=== PATIENT | male | born 1995 | race African-American/Black ===

== ENCOUNTER 2016-11-22 10:49 | Emergency (ER) | payer SELFPAY ==
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
[2016-11-22] MEDS ORDERED: KETOROLAC TROMETHAMINE 60 MG/2 ML SDV IM ONE (12:08)
[2016-11-22 12:20] VITALS: BP 144/66
== END 2016-11-22 12:22 | disposition home or self-care (01) ==
LOC: ER 10:49
DX: S33.2XXA Dislocation of sacroiliac and sacrococcygeal joint, initial encounter (principal); R03.0 Elevated blood-pressure reading, without diagnosis of hypertension; W18.30XA Fall on same level, unspecified, initial encounter; Y93.67 Activity, basketball; F17.210 Nicotine dependence, cigarettes, uncomplicated
CPT/HCPCS: 99283; 96372; 72220; J1885

== ENCOUNTER 2018-06-02 12:03 | Emergency (ER) | payer SELFPAY ==
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
[2018-06-02 13:43] VITALS: BP 126/73
== END 2018-06-02 13:44 | disposition home or self-care (01) ==
LOC: ER 12:03
DX: R07.81 Pleurodynia (principal); F17.210 Nicotine dependence, cigarettes, uncomplicated
CPT/HCPCS: 99283

== ENCOUNTER 2018-08-25 03:27 | Emergency (ER) | payer SELFPAY ==
[2018-08-25] MEDS ORDERED: KETOROLAC TROMETHAMINE 60 MG/2 ML SDV IM ONE (05:49)
--- NOTE | 2018-08-25 05:49 | ER Document Report ---
HPI - HPI Patient complains to provider of: Right shoulder pain, right arm pain Time Seen by Provider: 08/25/18 05:36 Pain Level: 3 Context: Patient is a 23-year-old male that comes to the emergency department for chief complaint of pain in the right shoulder area at the pectoralis muscle extending into the arm and occasionally radiating down the arm. He points to the area of pain. He states it has been hurting him over the past couple of days, worse today. He does shingling work, he is right-handed. He denies impact or trauma. He denies numbness or weakness. He denies fever or chills, nausea or vomiting, denies ever using IV drugs, he denies pain in his chest, shortness of breath. He denies any daily medications or known medical history. He smokes, he also smokes weed. He denies recreational drugs otherwise. Past Medical History - General Information source: Patient - Social History Smoking Status: Current Every Day Smoker Smoking Education Provided: Yes - <3 min Drug Abuse: Marijuana Lives with: Family Family History: Reviewed & Not Pertinent - Medical History Medical History: Negative Renal/ Medical History: Denies: Hx Peritoneal Dialysis Surgical Hx: Negative - Immunizations Immunizations up to date: Yes Hx Diphtheria, Pertussis, Tetanus Vaccination: Yes Vertical Provider Document - CONSTITUTIONAL General Appearance: WD/WN, No Apparent Distress - INFECTION CONTROL TRAVEL OUTSIDE OF THE [place] IN LAST 30 DAYS: No - HEENT HEENT: Atraumatic, Normocephalic - NECK Neck: Normal Inspection - RESPIRATORY Respiratory: Breath Sounds Normal, No Respiratory Distress, Other - There is some tenderness over the lateral aspect of the right pectoral muscle, this is reproducible with palpation and with range of motion of the right arm and shoulder, extends slightly into the proximal arm. No erythema, crepitus, swelling, or severe tenderness noted. Remaining chest unremarkable. - CARDIOVASCULAR Cardiovascular: Regular Rate, Regular Rhythm - GI/ABDOMEN Gastrointestinal: Abdomen Soft, Abdomen Non-Tender - BACK Back: Normal Inspection - MUSCULOSKELETAL/EXTREMETIES Musculoskeletal/Extremeties: MAEW, FROM, Non-Tender - NEURO Level of Consciousness: Awake, Alert, Appropriate - DERM Integumentary: Warm, Dry, No Rash Course - Re-evaluation Re-evalutation: Patient with right sided pectoralis muscle tenderness extending into the arm, r eproducible with palpation and range of motion. No deficits noted. I did discuss chest x-ray and EKG because of the location but patient declined. I feel this is appropriate because this is so specifically musculoskeletal. Patient is right-handed, works a hard job. Discussed treatment recommendations, medications, follow-up, and return precautions. Patient states understanding and agreement. - Vital Signs Vital signs: Temp Pulse Resp BP Pulse Ox 98.4 F 62 14 159/89 H 100 08/25/18 03:52 08/25/18 03:52 08/25/18 03:52 08/25/18 03:52 08/25/18 03:52 Discharge - Discharge Clinical Impression: Right shoulder pain Qualifiers: Chronicity: acute Qualified Code(s): M25.511 - Pain in right shoulder Condition: Stable Disposition: HOME, SELF-CARE Additional Instructions: Your evaluation is consistent with injury, strain, and muscle spasm of the right pectoralis muscle and proximal arm. I recommend that you apply heat to the area several times a day, take the prescribed anti-inflammatory, take the prescribed muscle relaxer, and rest the arm and shoulder. Resume normal activity when symptoms resolved. Return if you worsen including severe worsening pain, numbness, fever, or any other concerning or worsening symptoms. Prescriptions: Ibuprofen [Ibu] 800 mg PO TID PRN #30 tablet PRN Reason: Methocarbamol [Robaxin-750] 750 mg PO QID PRN #20 tablet PRN Reason: Forms: Return to Work, Elevated Blood Pressure
[2018-08-25 07:37] VITALS: BP 145/62
== END 2018-08-25 07:20 | disposition home or self-care (01) ==
LOC: ER 03:27
DX: M25.511 Pain in right shoulder (principal); M79.601 Pain in right arm; F17.200 Nicotine dependence, unspecified, uncomplicated
CPT/HCPCS: 99283; 96372; J1885

== ENCOUNTER 2019-01-09 08:47 | Emergency (ER) | payer SELFPAY ==
[2019-01-09] MEDS ORDERED: DIPH/PERTUSS(ACELL)/TETANUS VAC/PF 0.5 ML SYR (>=10YO) IM ONE (10:24)
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
[2019-01-09 10:55] VITALS: BP 147/62
== END 2019-01-09 10:56 | disposition home or self-care (01) ==
LOC: ER 08:47
DX: S01.311A Laceration without foreign body of right ear, initial encounter (principal); W20.8XXA Other cause of strike by thrown, projected or falling object, initial encounter; F17.210 Nicotine dependence, cigarettes, uncomplicated
CPT/HCPCS: 90471; 90715; 99282

== ENCOUNTER 2019-04-14 17:55 | Emergency (ER) | payer SELFPAY ==
[2019-04-14 18:05] VITALS: BP 182/98
[2019-04-14] MEDS ORDERED: ASPIRIN 81 MG TABLET, CHEWABLE PO ONE (18:36)
--- NOTE | 2019-04-14 18:37 | ER Document Report ---
ED Medical Screen (RME) - General Chief Complaint: Chest Pain Stated Complaint: CHEST PAIN Time Seen by Provider: 04/14/19 18:35 Mode of Arrival: Ambulatory Information source: Patient Notes: Patient presents complaining of chest pain shortness of breath that started last night and persisted this morning. Patient states pain radiates into the neck area. No cough or cold symptoms no nausea or vomiting. Patient does report family history of father having [place] at age 42. I have greeted and performed a rapid initial assessment of this patient. A comprehensive ED assessment and evaluation of the patient, analysis of test results and completion of the medical decision making process will be conducted by additional ED providers. TRAVEL OUTSIDE OF THE [place] IN LAST 30 DAYS: No - Related Data Allergies/Adverse Reactions: No Known Allergies Allergy (Verified 04/14/19 18:34) Past Medical History Renal/ Medical History: Denies: Hx Peritoneal Dialysis - Immunizations Immunizations up to date: Yes Hx Diphtheria, Pertussis, Tetanus Vaccination: Yes Physical Exam - Vital signs Vitals: Temp Pulse Resp BP Pulse Ox 98.2 F 86 16 182/98 H 98 04/14/19 18:04 04/14/19 18:04 04/14/19 18:04 04/14/19 18:04 04/14/19 18:04 - Respiratory Respiratory status: No respiratory distress Chest status: Tender Breath sounds: Normal Chest palpation: Normal - Cardiovascular Rhythm: Regular Heart sounds: S1 appreciated, S2 appreciated Course - Vital Signs Vital signs: Temp Pulse Resp BP Pulse Ox 98.2 F 86 16 182/98 H 98 04/14/19 18:04 04/14/19 18:04 04/14/19 18:04 04/14/19 18:04 04/14/19 18:04
[2019-04-14 19:21] LABS: ABSOLUTE BASOPHILS # (AUTO) 0.1 10^3/uL (0.0-0.2); ABSOLUTE EOSINOPHILS # (AUTO) 0.3 10^3/uL (0.0-0.6); ABSOLUTE LYMPHOCYTES (AUTO) 2.2 10^3/uL (0.5-4.7); ABSOLUTE MONOCYTES (AUTO) 1.1 10^3/uL (0.1-1.4); ABSOLUTE NEUT (AUTO) 4.2 10^3/uL (1.7-8.2); EOSINOPHILS % (AUTO) 3.5 % (0-6); HEMATOCRIT 48.2 % (37.9-51.0); HEMOGLOBIN 16.3 g/dL (13.5-17.0); LYMPHOCYTES % (AUTO) 28.3 % (13-45); MEAN CORPUSCULAR HEMOGLOBIN 28.2 pg (27.0-33.4); MEAN CORPUSCULAR HGB CONC 33.9 g/dL (32.0-36.0); MEAN CORPUSCULAR VOLUME 83 fl (80-97); MONOCYTES % (AUTO) 13.4 % (3-13); PLATELET COUNT 307 10^3/uL (150-450); RED CELL DISTRIBUTION WIDTH 13.5 % (11.5-14.0); SEGMENTED NEUTROPHILS % (AUTO) 53.8 % (42-78); TOTAL CELLS COUNTED % (AUTO) 100 %; WHITE BLOOD COUNT 7.9 10^3/uL (4.0-10.5)
[2019-04-14 19:35] LABS: APPEARANCE,URINE CLEAR; BILIRUBIN,URINE NEGATIVE (NEGATIVE); COLOR,URINE YELLOW; GLUCOSE, URINE NEGATIVE (NEGATIVE); KETONES,URINE NEGATIVE (NEGATIVE); LEUKOCYTE ESTERASE,URINE NEGATIVE (NEGATIVE); NITRITE,URINE NEGATIVE (NEGATIVE); PROTEIN,URINE NEGATIVE (NEGATIVE); URINE SPECIFIC GRAVITY 1.026
[2019-04-14 19:38] LABS: ALBUMIN 4.8 g/dL (3.5-5.0); ALKALINE PHOSPHATASE 71 U/L (38-126); ANION GAP 12 (5-19); ASPARTATE AMINO TRANSFERASE 28 U/L (17-59); BILIRUBIN,DIRECT 0.1 mg/dL (0.0-0.4); BILIRUBIN,TOTAL 0.7 mg/dL (0.2-1.3); BLOOD UREA NITROGEN 14 mg/dL (7-20); CARBON DIOXIDE 25 mmol/L (22-30); CHLORIDE 103 mmol/L (98-107); GLUCOSE 95 mg/dL (75-110); POTASSIUM 4.2 mmol/L (3.6-5.0); TOTAL PROTEIN 8.3 g/dL (6.3-8.2)
--- NOTE | 2019-04-14 19:38 | RADIOLOGY REPORT (SQ) ---
EXAM DESCRIPTION: CHEST 2 VIEWS COMPLETED DATE/TIME: 04/14/2019 7:27 pm REASON FOR STUDY: cp COMPARISON: None. EXAM PARAMETERS: NUMBER OF VIEWS: two views TECHNIQUE: Digital Frontal and Lateral radiographic views of the chest acquired. RADIATION DOSE: NA LIMITATIONS: none FINDINGS: LUNGS AND PLEURA: No opacities, masses or pneumothorax. No pleural effusion. MEDIASTINUM AND HILAR STRUCTURES: No masses or contour abnormalities. HEART AND VASCULAR STRUCTURES: Heart normal size. No evidence for failure. BONES: No acute findings. HARDWARE: None in the chest. OTHER: No other significant finding. IMPRESSION: NO ACUTE RADIOGRAPHIC FINDING IN THE CHEST. TECHNICAL DOCUMENTATION: JOB ID: [id number] [id number] 2010 [employer]- All Rights Reserved Reading location - IP/workstation name: [email or web address]
[2019-04-14 19:42] LABS: URINE AMPHETAMINES SCREEN NEGATIVE; URINE BARBITURATES SCREEN NEGATIVE; URINE BENZODIAZEPINES SCREEN NEGATIVE; URINE COCAINE SCREEN NEGATIVE; URINE MARIJUANA (THC) SCREEN UNCONFIRMED POSITIVE; URINE METHADONE SCREEN NEGATIVE; URINE PHENCYCLIDINE SCREEN NEGATIVE
--- NOTE | 2019-04-15 00:50 | EKG REPORT ---
SEVERITY:- ABNORMAL ECG - SINUS RHYTHM PROBABLE LEFT VENTRICULAR HYPERTROPHY BORDERLINE T ABNORMALITIES, INFERIOR LEADS : Confirmed by: Joby Mazariegos 15-Apr-2019 00:49:48
== END 2019-04-14 22:48 | disposition left against medical advice (07) ==
LOC: ER 17:55
DX: Z53.21 Procedure and treatment not carried out due to patient leaving prior to being seen by health care provider (principal); R07.9 Chest pain, unspecified; R06.02 Shortness of breath; M54.2 Cervicalgia
CPT/HCPCS: 36415; 71046; 80053; 80307; 81001; 84484; 85025; 93005; 93010; 99281

== ENCOUNTER 2020-03-06 03:03 | Emergency (ER) | payer SELFPAY ==
[2020-03-06 03:11] VITALS: BP 155/105
[2020-03-06] MEDS ORDERED: IBUPROFEN 600 MG TABLET PO ONE (04:18)
--- NOTE | 2020-03-06 04:49 | RADIOLOGY REPORT (SQ) ---
EXAM DESCRIPTION: XR FOOT 1-2 VIEWS COMPLETED DATE/TME: 03/06/2020 00:00 CLINICAL HISTORY: 25 years, Male, bone pain COMPARISON: None. NUMBER OF VIEWS: 3 TECHNIQUE: 3 views right foot LIMITATIONS: None. FINDINGS: Negative for acute fracture or dislocation. Soft tissues are unremarkable. Joint spaces are preserved IMPRESSION: Negative exam copyright 2011 [email or web address]- All Rights Reserved
== END 2020-03-06 06:00 | disposition left against medical advice (07) ==
LOC: ER 03:03
DX: M89.8X9 Other specified disorders of bone, unspecified site (principal)